=== PATIENT | female | born 1950 | race Caucasian/White ===

== ENCOUNTER → 2020-07-26 | Outpatient (CLI) | payer SELFPAY ==
[~2020-07-26] MED LIST: ALLE25CA OR; ASPI325T OR; ATEN25TA OR; DIGO0.126 OR; atenolol
== END ==
LOC: M LABSMTC 10:09
PROVIDERS: ATTEND Pediatrics
DX: Z20.828 Contact with and (suspected) exposure to other viral communicable diseases (principal)

== ENCOUNTER → 2021-11-06 | Outpatient (CLI) | payer MEDICARE | LOC: M CLY 14:48 | PROVIDERS: ATTEND Physician Assistant | DX: M85.88 Other specified disorders of bone density and structure, other site (principal); M54.6 Pain in thoracic spine; M54.41 Lumbago with sciatica, right side ==

== ENCOUNTER → 2022-10-24 | Outpatient (REF) | payer MEDICARE ==
[2022-10-24 12:09] LABS: BLOOD UREA NITROGEN 14 MG/DL (9-23); CARBON DIOXIDE LEVEL 29 MMOL/L (20-31); CHLORIDE LEVEL 106 MMOL/L (98-107); GLOMERULAR FILTRATION RATE > 60.0 (>39); GLUCOSE, FASTING 87 MG/DL (74-106); POTASSIUM SERUM 4.3 MMOL/L (3.5-5.1); SODIUM LEVEL 140 MMOL/L (136-145)
== END ==
LOC: M SFHCCLAY 09:02
PROVIDERS: ATTEND Nurse Practitioner Family
DX: Z00.00 Encounter for general adult medical examination without abnormal findings (principal)

== ENCOUNTER → 2023-10-21 | Outpatient (REF) | payer MEDICARE ==
[2023-10-21 18:21] LABS: HEMOGLOBIN A1c 5.1 % (4.0-6.0)
[2023-10-21 18:22] LABS: ALBUMIN 3.4 G/DL (3.2-5.2); ALKALINE PHOSPHATASE 70 U/L (46-116); ALT/SGPT 25 U/L (7.0-40); AST/SGOT 29 U/L (<34); BILIRUBIN,TOTAL 0.4 MG/DL (0.3-1.2); BLOOD UREA NITROGEN 13 MG/DL (9-23); CALCIUM LEVEL 9.1 MG/DL (8.3-10.6); CARBON DIOXIDE LEVEL 29 MMOL/L (20-31); CHLORIDE LEVEL 109 MMOL/L (98-107); CHOLESTEROL LEVEL 163 MG/DL (<200); CHOLESTEROL RISK RATIO 2.23 (<5); CREATININE FOR GFR 0.77 MG/DL (0.55-1.30); GLOMERULAR FILTRATION RATE > 60.0 (>39); GLUCOSE, FASTING 80 MG/DL (74-106); HDL CHOLESTEROL 72.8 MG/DL (>40); LDL CHOLESTEROL 80.2 MG/DL (<100); NON-HDL-C 90.2 MG/DL; POTASSIUM SERUM 4.2 MMOL/L (3.5-5.1); SODIUM LEVEL 141 MMOL/L (136-145); TOTAL PROTEIN 7.4 G/DL (5.7-8.2); TRIGLYCERIDES LEVEL 50 MG/DL (<150)
[2023-10-21 18:23] LABS: FREE T4 0.86 NG/DL (0.89-1.76)
[2023-10-21 18:24] LABS: THYROID STIMULATING HORMONE 1.588 uIU/ML (0.55-4.78)
== END ==
LOC: M SFHCCLAY 10:30
PROVIDERS: ATTEND Nurse Practitioner Family
DX: Z00.00 Encounter for general adult medical examination without abnormal findings (principal); Z86.79 Personal history of other diseases of the circulatory system; Z79.899 Other long term (current) drug therapy

== ENCOUNTER → 2024-07-08 | Outpatient (REF) | payer MEDICARE ==
[~2024-07-08] MED LIST changes: +B COCAP4 PO; +CYAN-11 PO; +MAGN100T PO; +METO1TAB87
[2024-07-08 17:30] LABS: BASO % 0.8 % (0.0-1.0); EOS # 0.1 10^3/uL (0.0-0.5); EOS % 3.8 % (0.0-3.0); HEMOGLOBIN 11.3 g/dl (12.0-15.5); LYMPH # 1.2 10^3/uL (1.5-5.0); LYMPH % 33.6 % (24.0-44.0); MEAN CORPUSCULAR HEMOGLOBIN 31.6 pg (27.0-33.0); MEAN CORPUSCULAR HGB CONC 32.3 g/dl (32.0-36.5); MEAN CORPUSCULAR VOLUME 97.8 fl (80.0-96.0); MONO # 0.7 10^3/uL (0.0-0.8); MONO % 18.2 % (2.0-8.0); NEUTROPHILS # 1.6 10^3/uL (1.5-8.5); NEUTROPHILS % 43.6 % (36.0-66.0); PLATELET COUNT, AUTOMATED 138 10^3/uL (150-450); RED BLOOD COUNT 3.58 10^6/uL (4.00-5.40); WHITE BLOOD COUNT 3.7 10^3/uL (4.0-10.0)
== END ==
LOC: M LABDRAWC 16:44
PROVIDERS: ATTEND Internal Medicine Hematology & Oncology
DX: D72.829 Elevated white blood cell count, unspecified (principal)

== ENCOUNTER 2025-03-05 11:52 | Emergency (ER) | payer MEDICARE ==
[~2025-03-05] VITALS: Ht 167.6 cm; Wt 61.5 kg
[~2025-03-05 11:52] MED LIST changes: -METO1TAB87; +METO1TAB87 PO
[2025-03-05 12:45] LABS: BASO # 0.0 10^3/uL (0.0-0.2); BASO % 0.7 % (0.0-1.0); EOS # 0.1 10^3/uL (0.0-0.5); EOS % 1.8 % (0.0-3.0); LYMPH # 1.3 10^3/uL (1.5-5.0); LYMPH % 30.2 % (24.0-44.0); MONO # 0.6 10^3/uL (0.0-0.8); MONO % 14.1 % (2.0-8.0); NEUTROPHILS # 2.3 10^3/uL (1.5-8.5); NEUTROPHILS % 53.0 % (36.0-66.0); PLATELET COUNT, AUTOMATED 144 10^3/uL (150-450)
[2025-03-05] MEDS: METOPROLOL TART 25 MG TABLET PO ONE (12:46)
[2025-03-05] MEDS: METOPROLOL 5 MG/5 ML VIAL IV SCH (12:46)
[2025-03-05 12:50] LABS: ALT/SGPT 19.0 U/L (7.0-40); AST/SGOT 30.0 U/L (<34); CALCIUM LEVEL 9.2 MG/DL (8.3-10.6); CARBON DIOXIDE LEVEL 24.0 MMOL/L (20-31); CHLORIDE LEVEL 108.0 MMOL/L (98-107); CREATININE FOR GFR 0.96 MG/DL (0.55-1.30); GLOMERULAR FILTRATION RATE 62.1 (>39); POTASSIUM SERUM 4.6 MMOL/L (3.5-5.1); SODIUM LEVEL 144.0 MMOL/L (136-145)
[2025-03-05] MEDS: NS 500 ML IV ONE (13:36)
[2025-03-05] MEDS: MIDAZOLAM INJ 2 MG/2 ML VIAL IV STA (16:04)
[2025-03-05] MEDS: NS (Normal Saline) 0.9% 1,000 ML IV SCH (16:04)
[2025-03-05] MEDS ORDERED: ASPI325T57 PO (16:12)
[2025-03-05] MEDS ORDERED: CYAN-1 PO (16:12)
[2025-03-05] MEDS ORDERED: HOME MED LIST COMPLETE! XX SCH (16:15)
[2025-03-05 17:35] VITALS: BP 129/76; TEMP 98.3; O2SAT 99
== END 2025-03-05 17:42 | disposition home or self-care (01) ==
LOC: M ED 11:52
DX: I48.91 Unspecified atrial fibrillation (principal); D64.9 Anemia, unspecified; Z79.1 Long term (current) use of non-steroidal anti-inflammatories (NSAID); Z79.899 Other long term (current) drug therapy
CPT/HCPCS: 71045; 80048; 80076; 84443; 85025; 92960; 93005; 93041; 94760; 96361; 96374; 96375; 99285; J0616; J2250

== ENCOUNTER 2025-04-12 13:25 | Emergency (ER) | payer MEDICARE ==
[~2025-04-12] VITALS: Ht 167.6 cm; Wt 61.1 kg
[~2025-04-12 13:25] MED LIST changes: +ASPI325T57 PO; +CYAN-1 PO
[2025-04-12] MEDS ORDERED: METO25TA4 PO (13:36)
[2025-04-12 13:57] LABS: BASO # 0.1 10^3/uL (0.0-0.2); BASO % 1.2 % (0.0-1.0); EOS # 0.1 10^3/uL (0.0-0.5); EOS % 3.0 % (0.0-3.0); LYMPH # 1.4 10^3/uL (1.5-5.0); LYMPH % 34.3 % (24.0-44.0); MONO # 0.6 10^3/uL (0.0-0.8); MONO % 13.6 % (2.0-8.0); NEUTROPHILS # 1.9 10^3/uL (1.5-8.5); NEUTROPHILS % 47.9 % (36.0-66.0); PLATELET COUNT, AUTOMATED 123 10^3/uL (150-450)
[2025-04-12 14:25] LABS: CK-MB VALUE MASS 8.6 NG/ML (<3.6)
[2025-04-12 14:27] LABS: INR 0.97
[2025-04-12 14:28] LABS: CK-MB VALUE MASS 8.4 NG/ML (<3.6); CPK CREATINE PHOSPHOKINASE 145 U/L (34-145); MB/CK RELATIVE INDEX 5.93 (< OR =4)
[2025-04-12 14:30] LABS: ALT/SGPT 16.0 U/L (7.0-40); AST/SGOT 24.0 U/L (<34); CALCIUM LEVEL 8.9 MG/DL (8.3-10.6); CARBON DIOXIDE LEVEL 26.0 MMOL/L (20-31); CHLORIDE LEVEL 108.0 MMOL/L (98-107); CPK CREATINE PHOSPHOKINASE 135.0 U/L (34-145); CREATININE FOR GFR 0.82 MG/DL (0.55-1.30); FREE T4 0.99 NG/DL (0.89-1.76); GLOMERULAR FILTRATION RATE 75.0 (>39); MB/CK RELATIVE INDEX 6.22 (< OR =4); POTASSIUM SERUM 4.3 MMOL/L (3.5-5.1); SODIUM LEVEL 143.0 MMOL/L (136-145)
[2025-04-12 15:51] LABS: CK-MB VALUE MASS 8.6 NG/ML (<3.6)
[2025-04-12 15:52] LABS: CPK CREATINE PHOSPHOKINASE 139 U/L (34-145); MB/CK RELATIVE INDEX 6.18 (< OR =4)
[2025-04-12] MEDS ORDERED: ISOVUE-370 76% 100 ML VIAL As Ordered ONE (16:54)
[2025-04-12 19:52] VITALS: BP 139/65; TEMP 97.1; O2SAT 100
== END 2025-04-12 20:00 | disposition home or self-care (01) ==
LOC: M ED 13:25
DX: R07.9 Chest pain, unspecified (principal); R00.1 Bradycardia, unspecified; R91.1 Solitary pulmonary nodule; J98.11 Atelectasis; I48.91 Unspecified atrial fibrillation; J45.909 Unspecified asthma, uncomplicated; D64.9 Anemia, unspecified; Z79.1 Long term (current) use of non-steroidal anti-inflammatories (NSAID); Z79.899 Other long term (current) drug therapy
CPT/HCPCS: 36415; 71045; 71275; 80048; 80076; 82550; 82553; 83690; 84439; 84443; 84484; 85025; 85610; 85730; 93005; 93041; 94760; 99285; Q9967